=== PATIENT | female | born 1985 | race Two or more races ===

== ENCOUNTER 2025-04-03 10:05 | Outpatient (CLI) | payer BC, SELFPAY ==
[2025-04-03] VITALS (28 sets, daily range): BP systolic 118–138; BP diastolic 74–91; PULSE 71–121; RESP 18–97; TEMP 36.7; O2SAT 97–99
[2025-04-03 11:00] LABS: Basophils # (Auto) 0.0 Thou/mm3 (0.0-0.2); Basophils % (Auto) 0 % (0-2.5); Eosinophils # (Auto) 0.0 Thou/mm3 (0.0-0.5); Eosinophils % (Auto) 1 % (0-10); Hematocrit 34.5 % (36.0-46.0); Hemoglobin 11.0 g/dL (12.0-16.0); Immature Granulocytes Auto 0.03 Thou/mm3 (0.00-0.00); Lymphocytes # (Auto) 1.8 Thou/mm3 (1.0-4.8); Lymphocytes % (Auto) 23 % (10-50); Mean Corpuscular HGB Conc 31.9 g/dl (31.0-37.0); Mean Corpuscular Hemoglobin 25.4 pg (25.0-35.0); Mean Corpuscular Volume 80 fL (80-100); Monocytes # (Auto) 0.6 Thou/mm3 (0.0-0.8); Monocytes % (Auto) 8 % (0-12); Neutrophils # (Auto) 5.1 Thou/mm3 (1.8-7.7); Neutrophils % (Auto) 68 % (37-80); Nucleated Red Blood Cell # 0.00 Thou/mm3 (0.00-0.00); Nucleated Red Blood Cell % 0 /100 WBC (0); Platelet Count 265 Thou/mm3 (140-440); RDW Standard Deviation 65.1 fL (36.4-46.3); Red Blood Count 4.33 Miln/mm3 (4.00-5.20); White Blood Count 7.6 Thou/mm3 (3.6-11.0)
[2025-04-03 11:13] LABS: Collection Type, Urine Clean Catch
[2025-04-03 11:20] LABS: Bilirubin,Urine Negative (Negative); Blood,Urine Trace (Negative); Color,Urine Yellow (Lt Yel-Yel); Glucose, Urine Negative (Negative); Ketones,Urine Negative (Negative); Leukocyte Esterase,Urine Positive (Negative); Nitrite,Urine Negative (Negative); PH,Urine 6.5 (5.0-7.0); Protein,Urine 1+ (Neg - Trace); RBC,Urine 14 /hpf (0-3); Specific Gravity,Urine 1.029 (1.001-1.035); Squamous Epithelial Cell,Urine 125 /hpf (0-5); Urobilinogen,Urine 2.0 mg/dL (0.0-1.0); WBC,Urine 12 /hpf (0-5)
[2025-04-03 11:21] LABS: Clarity,Urine Cloudy (Clear/Hazy)
[2025-04-03 11:25] LABS: Alanine Aminotransferase 12 U/L (10-49); Albumin, Serum 3.9 gm/dL (3.5-5.0); Albumin/Globulin Ratio 1.3 (1.2-2.2); Alkaline Phosphatase 200 U/L (46-116); Anion Gap 10 (7-16); Aspartate Amino Transferase 21 U/L (0-34); BUN/Creatinine Ratio 22 Ratio (12-20); Bilirubin,Total 0.4 mg/dL (0.3-1.2); Blood Urea Nitrogen 11 mg/dL (9-23); Calcium 8.7 mg/dL (8.3-10.6); Calcium (Corrected) 8.8 mg/dL (8.5-10.1); Carbon Dioxide 21.4 mMol/L (20.0-31.0); Chloride 108 mMol/L (98-107); Creatinine (Component) 0.5 mg/dL (0.6-1.3); Globulin 2.9 gm/dL (2.3-3.5); Glucose 100 mg/dL (74-106); LDH (Lactate Dehydrogenase) 208 U/L (120-246); Osmolality,Calculated 276 (275-295); Potassium 3.7 mMol/L (3.4-5.1); Sodium 139 mMol/L (136-145); Total Protein 6.8 gm/dL (5.7-8.2); Uric Acid 3.9 mg/dL (3.1-7.8); eGFR > 60 See Note
[2025-04-03 11:41] LABS: Creatinine,Random Urine 163 mg/dL (30-125); Protein Total, Random Urine 73 mg/dL (1-14)
[2025-04-03 12:05] LABS: INR 0.9 (0.9-1.3); Partial Thromboplastin Time 26.5 Seconds (22.0-36.0); Prothrombin Time 9.9 Seconds (9.0-12.2)
== END 2025-04-03 11:57 | disposition home or self-care (01) ==
LOC: S4S1 10:06 → S4SX 10:06
PROVIDERS: Referring Provider Specialist; Visit Provider Specialist
DX: Z34.83 Encounter for supervision of other normal pregnancy, third trimester (principal); Z36.89 Encounter for other specified antenatal screening; Z3A.39 39 weeks gestation of pregnancy
CPT/HCPCS: 36415; 59025; 80053; 80307; 81001; 82570; 83615; 84156; 84550; 85025; 85610; 85730

== ENCOUNTER 2025-04-04 15:42 | Inpatient (IN) | payer BC, SELFPAY ==
[2025-04-04] VITALS (38 sets, daily range): BP systolic 122–135; BP diastolic 68–89; PULSE 66–93; RESP 16–98; TEMP 36.4–36.8; O2SAT 97–100; BMI 33.4
[2025-04-04 14:09] LABS: Protein Total, Urine Volume 900 mL/24hr (600-1800)
[2025-04-04 14:10] LABS: Total Volume,Urine 900 mL (600-1800)
[2025-04-04 14:24] LABS: Creatinine 24 Hour,Urine 0.8 gm/24hr (0.6-1.5); Creatinine,Urine 90 mg/dL (30-125); Protein Total, 24 hr Urine 306 mg/24hr (<149); Protein Total, Urine 34 mg/dL (1-14)
[2025-04-04 14:58] LABS: Basophils # (Auto) 0.0 Thou/mm3 (0.0-0.2); Basophils % (Auto) 0 % (0-2.5); Eosinophils # (Auto) 0.0 Thou/mm3 (0.0-0.5); Eosinophils % (Auto) 1 % (0-10); Hematocrit 34.0 % (36.0-46.0); Hemoglobin 10.7 g/dL (12.0-16.0); Immature Granulocytes Auto 0.02 Thou/mm3 (0.00-0.00); Lymphocytes # (Auto) 1.4 Thou/mm3 (1.0-4.8); Lymphocytes % (Auto) 25 % (10-50); Mean Corpuscular HGB Conc 31.5 g/dl (31.0-37.0); Mean Corpuscular Hemoglobin 25.6 pg (25.0-35.0); Mean Corpuscular Volume 81 fL (80-100); Monocytes # (Auto) 0.5 Thou/mm3 (0.0-0.8); Monocytes % (Auto) 9 % (0-12); Neutrophils # (Auto) 3.6 Thou/mm3 (1.8-7.7); Neutrophils % (Auto) 65 % (37-80); Nucleated Red Blood Cell # 0.00 Thou/mm3 (0.00-0.00); Nucleated Red Blood Cell % 0 /100 WBC (0); Platelet Count 230 Thou/mm3 (140-440); RDW Standard Deviation 66.0 fL (36.4-46.3); Red Blood Count 4.18 Miln/mm3 (4.00-5.20); White Blood Count 5.6 Thou/mm3 (3.6-11.0)
[2025-04-04 15:22] LABS: Fibrinogen 592 mg/dL (175-375); INR 0.9 (0.9-1.3); Partial Thromboplastin Time 26.1 Seconds (22.0-36.0); Prothrombin Time 9.9 Seconds (9.0-12.2)
[2025-04-04 16:05] LABS: Alanine Aminotransferase 11 U/L (10-49); Albumin, Serum 3.8 gm/dL (3.5-5.0); Albumin/Globulin Ratio 1.4 (1.2-2.2); Alkaline Phosphatase 194 U/L (46-116); Anion Gap 9 (7-16); Aspartate Amino Transferase 19 U/L (0-34); BUN/Creatinine Ratio 15 Ratio (12-20); Bilirubin,Total 0.3 mg/dL (0.3-1.2); Blood Urea Nitrogen 9 mg/dL (9-23); Calcium 8.6 mg/dL (8.3-10.6); Calcium (Corrected) 8.8 mg/dL (8.5-10.1); Carbon Dioxide 23.5 mMol/L (20.0-31.0); Chloride 108 mMol/L (98-107); Creatinine (Component) 0.6 mg/dL (0.6-1.3); Estimated Creatinine Clearance 123.2 mL/min (>60); Globulin 2.8 gm/dL (2.3-3.5); Glucose 84 mg/dL (74-106); LDH (Lactate Dehydrogenase) 191 U/L (120-246); Osmolality,Calculated 277 (275-295); Potassium 4.2 mMol/L (3.4-5.1); Sodium 140 mMol/L (136-145); Total Protein 6.6 gm/dL (5.7-8.2); Uric Acid 3.4 mg/dL (3.1-7.8); eGFR > 60 See Note
[2025-04-04 16:23] LABS: Syphilis Nonreactive (Nonreactive)
--- NOTE | 2025-04-04 16:50 | XR_ITS ---
Examination: Complete OB ultrasound greater than 14 weeks Date and time of exam: April 04, 2025, 1712 hours INDICATIONS: Diagnosis preeclampsia of Findings: Viable intrauterine single fetus with single amniotic sac presentation cephalic Cardiac motion 143 bpm Placenta anterior grade 2 Umbilical cord insertion 3 vessel seen Amniotic fluid index 6.4 cm spine maternal left Cervix 4.2 cm Ovaries obscured by the fetus. Composite estimated gestational age based on BPD, head circumference, abdominal circumference, femur length is 38 weeks 5 days Estimated weight 3573.5 g. Survey of intracranial anatomy, spinal anatomy, abdominal anatomy, four-chamber heart performed with no abnormalities identified. Impression: Viable intrauterine gestation cephalic presentation.
--- NOTE | 2025-04-04 17:31 | PD.LDHP ---
Documentation for date of: 04/04/25 OB Labor/Induct. HPI History of Present Illness : 2 Para: 1 Term pregnancies: 1 pregnancies: 0 Living children: 1 History of Abortions: Spontaneous and Elective: 0 History of Vaginal deliveries: 1 History of sections: No History of : No Date of last menstrual period: 06/29/24 ILYA: 04/05/25 Gestational age based on last menstrual period: 39 History of present illness: H and P dictated in Nuance on STAT line #9: [id number] History of Present Adequate Care: Yes Past Medical History Surgical History SURGICAL: Negative Section Meds Home Medications and Allergies Home Medications ?Medication ?Instructions ?Recorded ?Confirmed ?Type Vit #76/Iron,Carb/FA (Pnv 1 ea PO #0 tabs 09/20/16 History 29-1 Tablet) Allergies Allergy/AdvReac Type Severity Reaction Status Date / Time No Known Allergies Allergy Verified 04/03/25 10:19 OB Exam Physical Exam Vital signs: Temp Pulse Resp BP Pulse Ox O2 Del Method 98.2 F 79 18 132/77 H 99 Room Air 04/04/25 13:22 04/04/25 16:45 04/04/25 13:22 04/04/25 16:45 04/04/25 15:33 04/04/25 13:22 OB Results Labs 04/04/25 14:36 04/04/25 14:36 Labs: Short CBC 04/04/25 Range/Units 14:36 WBC 5.6 (3.6-11.0) Thou/mm3 Hgb 10.7 L (12.0-16.0) g/dL Hct 34.0 L (36.0-46.0) % Plt Count 230 D (140-440) Thou/mm3 BMP 04/04/25 14:36 Sodium 140 Potassium 4.2 D Chloride 108 H Carbon Dioxide 23.5 BUN 9 Creatinine 0.6 Glucose 84 Calcium 8.6 Liver Function 04/04/25 Range/Units 14:36 Total Bilirubin 0.3 (0.3-1.2) mg/dL AST 19 (0-34) U/L ALT 11 (10-49) U/L Alkaline Phosphatase 194 H (46-116) U/L Albumin 3.8 (3.5-5.0) gm/dL
--- NOTE | 2025-04-04 17:45 | ESHP_ITS ---
RE: NAIDA GREER : 1985 DATE OF ADMISSION: 04/04/2025 HISTORY OF PRESENT ILLNESS: This is a 39-year-old 2, para 1 with due date of 04/05/2025 with intrauterine at 39 weeks and 6 days who presents for induction of labor for preeclampsia without severe features. The patient underwent a 24-hour urine collection whose results showed 308 mg of protein over 24 hours consistent with preeclampsia. Her PI blood work was in the normal range. She does have an iron deficiency anemia, which she has managed throughout her with oral iron. Her hemoglobin on admission is 10.7. She denies any headache, change of vision, or right upper quadrant pain. She denies any chest pain, palpitations, shortness of breath, or lower extremity pain. She denies any leaking or bleeding. She reports occasional contractions. She reports normal movement. ALLERGIES: NO KNOWN DRUG ALLERGIES. MEDICATIONS: 1. multivitamin 1 p.o. daily. 2. Ferrous sulfate 325 mg 1 p.o. b.i.d. SOCIAL HISTORY: She denies any alcohol, drug use, or smoking. PAST MEDICAL HISTORY: 1. Iron deficiency anemia. 2. Preeclampsia without severe features. 3. Group B strep urinary tract infection, 08/31/2024. 4. Advanced maternal age. FAMILY HISTORY: Paternal grandfather, colon cancer. Father, hypertension and diabetes. Son, congenital hypertrophic pyloric stenosis. OB HISTORY: In 2017, 41-week, normal vaginal delivery, 7 pound 3 ounce male, induction for postdates. PAST SURGICAL HISTORY: Denies. REVIEW OF SYSTEMS: As above. PHYSICAL EXAM: VITAL SIGNS: Blood pressure 137/82, heart rate 88, respirations 18, temperature 98.2. HEENT: Oropharynx and sclerae clear. LUNGS: Clear to auscultation bilaterally. HEART: Regular rate and rhythm. ABDOMEN: Gravid, consistent with an estimated weight of 7 and 3/4 pounds. PELVIC: See RN notes. EXTREMITIES: Nontender. SKIN: No gross rashes or lesions. NEUROLOGIC: No focal deficit. ASSESSMENT AND PLAN: Intrauterine at 39 weeks and 6 days, preeclampsia without severe features, induction of labor, and anticipate spontaneous vaginal delivery. Informed consent was obtained. The patient made aware of the risk, complication, alternative, and benefits of the proposed procedure and she agrees. She is aware of the risk of operative vaginal delivery and delivery, and agrees with these modes of delivery if indicated. DT: 17:28:52 TT: 17:44:00 Ref: [id number] - TID: [id number]
[2025-04-04] MEDS: RINGERS LACTATED 1000 ML 1,000 ML 100 ML IV ×2 (18:05→23:55)
[2025-04-04] MEDS: Ampicillin Inj 2,000 MG in SODIUM CHLORIDE 0.9% (POP) 100 ML 200 MG IV (18:05)
[2025-04-04] MEDS: Ampicillin Inj 1,000 MG in SODIUM CHLORIDE 0.9% (Popper) 50 ML 50 MG IV (22:08)
[2025-04-05] VITALS (277 sets, daily range): BP systolic 102–159; BP diastolic 58–92; PULSE 64–136; RESP 15–19; TEMP 36.4–37.7; O2SAT 90–100
[2025-04-05] MEDS: Ampicillin Inj 1,000 MG in SODIUM CHLORIDE 0.9% (Popper) 50 ML 50 MG IV ×4 (02:07→14:35)
--- NOTE | 2025-04-05 05:29 | PD.LDPN ---
Documentation for date of: 04/05/25 OB Labor Progress Note Pelvic Exam Dilation (cm): 3 Effacement (%): 50 station: -3 Amniotic membrane status: Intact Contractions Monitor mode: External Contraction frequency: 5 Contraction intensity: Mild Status status: Category l Assessment and Plan Comments: Cervical Ripening Ongoing
[2025-04-05] MEDS: RINGERS LACTATED 1000 ML 1,000 ML 100 ML IV (09:00)
--- NOTE | 2025-04-05 13:46 | PD.LDPN ---
Documentation for date of: 04/05/25 OB Labor Progress Note Pain Control Comments: Epidural Pelvic Exam Dilation (cm): 7 Effacement (%): 80 station: 0 Amniotic membrane status: Ruptured Contractions Monitor mode: External Contraction frequency: 2-3 Contraction pattern: Coupling Contraction intensity: Moderate Status status: Category l Assessment and Plan Comments: Anticipate History of Present Illness HPI H and P dictated in Nuance on STAT line #9: [id number]
[2025-04-05] MEDS: GENTAMICIN/NS 80 MG IVPB 80 MG in PRE-MIXED 1 BAG 50 MG IV ×2 (15:15→21:48)
[2025-04-05] MEDS: MINERAL OIL 30 ML UDC TOP (15:30)
[2025-04-05] MEDS: OXYTOCIN in NS 20 units 20 UNIT/1,000 ML BAG 125 UNIT IV (15:35)
[2025-04-05] MEDS: BENZO/LANO/ALOE (Dermoplast) 60 GM CAN 1 SPRAY TOP (15:48)
--- NOTE | 2025-04-05 16:09 | PD.LDDELS ---
Data ([facility]) Data Hx Section: No : 2 Term: 1 : 0 Livin Abortions: Spontaneous & Theraputic: 0 Delivery Data ([facility]ley) Labor Data Initiation of labor: Induction Induction/Augmentation Agent: Cervidil ROM date: 04/05/25 ROM time: 13:50 Amniotic membrane rupture type: Spontaneous Amniotic fluid description: Blood Tinged Delivery Data EDC: 04/05/25 EDC calculated by:: LMP/early US confirmation Onset of labor date: 04/05/25 Onset of labor time: 09:15 Complete dilation date: 04/05/25 Complete dilation time: 14:50 Riesel delivery date: 04/05/25 Riesel delivery time: 15:35 Placenta delivery date: 04/05/25 Placenta delivery time: 15:45 Stage 1 total time: Labor - Stage 1 Duration 5 hours and 35 minutes Delivered by: Mj Cornejo Delivery nurse: Shruti Monsalve RN [place] nurse: Ranjeet PEREZ RN [employer] Agent at delivery: No Support person(s) at delivery: fob Delivery Method Delivery method: Normal Vaginal Delivery Presentation: Vertex position: OA Anesthesia Type Anesthesia Type: Epidural Placenta Placenta delivery description: Spontaneous Cord blood sent to lab: Yes cord blood collection: Cord Blood Type Lacerations #1: Perineal: 2nd degree Labial: left upper 2nd degree Perineal repair Sutures used for repair: 3.0 Chromic EBL Estimated blood loss (ml): 300 Umbilical Cord cord description: 3 Vessels Additional Procedures None Complications Complications: None Data ([facility]ley) Riesel Data order: 1 Riesel's gender: Female weight (gms): 8 lb 1.455 oz Weight (pounds): 8 lbs and 1.5 ozs Riesel length: 21.5 in 1 minute: 7 5 minutes: 9
[2025-04-05] MEDS: Ampicillin Inj 2,000 MG in SODIUM CHLORIDE 0.9% (POP) 100 ML 200 MG IV (19:12)
[2025-04-05 20:40] LABS: Basophils # (Auto) 0.0 Thou/mm3 (0.0-0.2); Basophils % (Auto) 0 % (0-2.5); Eosinophils # (Auto) 0.0 Thou/mm3 (0.0-0.5); Eosinophils % (Auto) 0 % (0-10); Hematocrit 32.0 % (36.0-46.0); Hemoglobin 10.2 g/dL (12.0-16.0); Immature Granulocytes Auto 0.08 Thou/mm3 (0.00-0.00); Lymphocytes # (Auto) 1.2 Thou/mm3 (1.0-4.8); Lymphocytes % (Auto) 7 % (10-50); Mean Corpuscular HGB Conc 31.9 g/dl (31.0-37.0); Mean Corpuscular Hemoglobin 25.7 pg (25.0-35.0); Mean Corpuscular Volume 81 fL (80-100); Monocytes # (Auto) 0.9 Thou/mm3 (0.0-0.8); Monocytes % (Auto) 5 % (0-12); Neutrophils # (Auto) 15.0 Thou/mm3 (1.8-7.7); Neutrophils % (Auto) 88 % (37-80); Nucleated Red Blood Cell # 0.00 Thou/mm3 (0.00-0.00); Nucleated Red Blood Cell % 0 /100 WBC (0); Platelet Count 229 Thou/mm3 (140-440); RDW Standard Deviation 64.9 fL (36.4-46.3); Red Blood Count 3.97 Miln/mm3 (4.00-5.20); White Blood Count 17.1 Thou/mm3 (3.6-11.0)
[2025-04-06] MEDS: Ampicillin Inj 2,000 MG in SODIUM CHLORIDE 0.9% (POP) 100 ML 200 MG IV ×3 (00:54→11:51)
[2025-04-06 04:25] VITALS: BP 113/69; PULSE 72; RESP 18; TEMP 36.8; O2SAT 97
[2025-04-06] MEDS: GENTAMICIN/NS 80 MG IVPB 80 MG in PRE-MIXED 1 BAG 50 MG IV ×2 (05:20→13:27)
--- NOTE | 2025-04-06 05:55 | ESPR_ITS ---
RE: NAIDA GREER : 1985 DATE OF SERVICE: 04/06/2025 SUBJECTIVE: day #1. Patient denies any problem or complaints. She is voiding and ambulating and tolerating a regular diet. She is passing flatus. She denies any excessive vaginal bleeding. She denies any dizziness or lightheadedness. She denies any chest pain, palpitations, shortness of breath, or lower extremity pain. OBJECTIVE: Blood pressure 113/69, heart rate 72, respiration 18, temperature is 98.2, pulse oximetry is 97% on room air. Lungs clear to auscultation bilaterally. Heart regular rate and rhythm. Abdomen fundus is firm. Extremities non-tender. LABORATORY DATA: Hemoglobin pre-delivery is 10.7, post-delivery is 10.2. ASSESSMENT: day #1 status post spontaneous vaginal delivery. PLAN: Encourage ambulation, support, care, possible discharge home later today. DT: 05:21:52 TT: 05:55:00 Ref: [id number] - TID: [id number]
[2025-04-06 08:20] VITALS: BP 142/83; PULSE 83; RESP 18; TEMP 36.6; O2SAT 97
[2025-04-06 11:45] VITALS: BP 120/74; PULSE 79; RESP 18; TEMP 36.6; O2SAT 99
[2025-04-06 15:45] VITALS: BP 116/68; PULSE 78; RESP 18; TEMP 36.6; O2SAT 98
--- NOTE | 2025-04-10 09:14 | ESDS_ITS ---
DS: Providers Provider Date of admission: 04/04/25 15:42 Primary care physician: Jami De Guzman MD Admitting Provider: Mj Cornejo MD Attending Provider on Admission: Mj Cornejo MD Consults: 04/05/25 18:34 Referral Routine Comment: Attending Provider on DC: Mj Cornejo MD Discharging Provider: Mj Cornejo MD DS: Diagnosis Problem List Completed Was Problem List Reviewed/Reconciled?: Yes Summary/Hosp Course Brief History: H and P dictated in Nuance on STAT line #9: [id number] Peripartum Data Delivery Method: Normal Vaginal Delivery Time Spent with Patient Time attestation: Total time spent providing and/or coordinating discharge services: Exam Vital Signs Temp Pulse Resp BP Pulse Ox O2 Del Method 97.9 F 78 18 116/68 98 Room Air 04/06/25 15:45 04/06/25 15:45 04/06/25 15:45 04/06/25 15:45 04/06/25 15:45 04/06/25 15:45 Discharge Plan Plan Patient Disposition: HOME (Self Care) Patient condition on transfer: Stable Prescriptions/Referrals Prescriptions/Med Rec: New ibuprofen 600 mg tablet 600 mg PO Q6H PRN (Reason: pain) Qty: 30 0RF Continued Vit #76/Iron,Carb/FA (Pnv 29-1 Tablet) 1 EACH tablet 1 ea PO Qty: 0 Referrals: Jami De Guzman MD [Primary Care Provider, Family Practice] Patient/Caregiver Discharge Instructions Discharge Activity: activity as tolerated Other Discharge Activity Instructions:: Follow up office 6 weeks. Education Materials: After a Vaginal , Breast Care After , Incision Care After Vaginal Print Language: Croatian Stand Alone Forms: Juliet Award Info., Patient Portal Info Letter Discharge Order Discharge Orders: Discharge (Routine); Ordered 04/06/25 Ordered By: Mj Cornejo Planned Discharge Date 04/10/25
== END 2025-04-06 16:51 | disposition home or self-care (01) | DRG 807 ==
LOC: S4S1 16:08 → S4SX 16:08 → S4NX 04-06 02:58
PROVIDERS: Admitting Provider Specialist; PCP Family Medicine; Referring Provider Specialist; Visit Provider Specialist
DX: O14.04 Mild to moderate pre-eclampsia, complicating childbirth (principal); Z37.0 Single live birth; Z3A.39 39 weeks gestation of pregnancy; O70.1 Second degree perineal laceration during delivery; O99.02 Anemia complicating childbirth; D50.9 Iron deficiency anemia, unspecified; Z87.440 Personal history of urinary (tract) infections
CPT/HCPCS: 36415; 59025; 59409; 76805; 80053; 82575; 83615; 84156; 84550; 85025; 85384; 85610; 85730; 86780; 86850; 86900; 86901; 94762; J0290; J1580; J2590; J2795; J7050; J7120; A9270